=== PATIENT | male | born 1970 | race Caucasian/White ===

== ENCOUNTER 2025-01-24 16:34 | Outpatient (CLI) | payer SELFPAY ==
--- NOTE | 2025-01-24 16:46 | CT_ITS ---
WS: [id number] CT CALCIUM SCORE REASON FOR VISIT: HYPERLIPIDEMIA; Coronary artery disease risk assessment COMPARISON: None TECHNIQUE: Noncontrast coronary CT in combination with quantitative analysis performed on a separate workstation were used to determine CACS (Agatston score) TOTAL EXAM DOSE: 102.81 mGy.cm ECG GATING: Prospective SCAN RANGE: Pulmonary artery bifurcation to Inferior aspect of heart COMPLICATIONS: None FINDINGS: Technical Quality/Examination Quality: Good Limitaiton: None OVERALL SCORES Total calcium score: 119 Total volume score: 139 mm3 Percentile: 75th-90th percentile ARTERY SCORES Left main coronary artery: 4 Left anterior descending artery: 71 Left circumflex artery: 44 Right coronary artery: 0 OTHER FINDINGS: Mediastinum: Normal. Thoracic aorta: Normal. Lungs: Normal. Upper Abdomen: Tiny esophageal hiatal hernia MINIMAL: 1-10 MILD: 11-100 MODERATE: 101-400 SEVERE:>400 CT/CT heart w calcium score 46548 IMPRESSION: Total calcium score 119 is between the 75th and 90th percentile for males between the ages of 50 and 54 GRADING OF CORONARY ARTERY DISEASE (BASED ON TOTAL CALCIUM SCORE) NO EVIDENCE OF CAD: 0 calcium score
== END 2025-01-24 16:35 | disposition home or self-care (01) ==
LOC: RAD 16:38
PROVIDERS: PCP Nurse Practitioner Family; Visit Provider Nurse Practitioner Family
DX: E78.2 Mixed hyperlipidemia (principal)
CPT/HCPCS: 75571